=== PATIENT | male | born 1960 | race Caucasian/White ===

== ENCOUNTER 2019-09-15 17:45 | Emergency (ER) | payer OTHER, SELFPAY ==
--- NOTE | ~2019-09-15 | XR_ITS ---
EXAMINATION: XR skull <4V DATE: 09/15/2019 18:54 INDICATION: Right-sided head injury with swelling post fall 2 days prior TECHNIQUE: 5 views of the skull obtained. COMPARISON: None. FINDINGS: No fractures identified. Specifically the calvarium, mathew of the orbits and paranasal sinuses appea r intact. Mild rightward deviation of the nasal septum. Temporomandibular joints are normal alignment . No air-fluid levels appreciated within the paranasal sinuses or mastoid air cells. IMPRESSION: 1. Negative skull radiographs. Reviewed, dictated and finalized at location A. [employer]
--- NOTE | 2019-09-15 18:07 | ED.FALL ---
HPI - Fall General Chief Complaint: Fall Stated Complaint: Fall Time Seen by Provider: 09/15/19 18:20 Source: patient Mode of arrival: ambulatory Limitations: no limitations History of Present Illness HPI Narrative: Lc More is a 59 yo male with a PMH of liver cirrhosis, elevated BP to severity of liver disease (on transplant list), who fell yesterday leaving work. This occurred about 36 hours ago- but may not return to work until has been checked out and injury evaluated. Pt unsure what he hit, splipped on ice in work parking lot, maybe hit face on running boards of truck. Unsure if LOC. Patient has since that time had no nausea vomiting headache-right side of face is swollen .eye swollen shut last night ;but is open today Related Data Home Medications Medication Instructions Recorded Confirmed midodrine 09/15/19 rifaximin 09/15/19 Allergies Allergy/AdvReac Type Severity Reaction Status Date / Time No Known Allergies Allergy Verified 09/15/19 18:20 Review of Systems Review of Systems: Narrative: CONSTITUTIONAL: Denies fever, chills, sweats. EYES: Denies visual changes, redness, discharge. ENT: Denies rhinorrhea, congestion, sore throat, otalgia. CARDIOVASCULAR: Denies chest pain, palpitations, edema. RESPIRATORY: Denies dyspnea, wheezing, cough GASTROINTESTINAL: Denies abdominal pain, nausea, vomiting, diarrhea. GENITOURINARY: Denies dysuria, hematuria, abnormal discharge SKIN: Denies rash or itching. Right-sided facial abrasion-above eye, has black eye, right cheek and nose abrasion MUSCULOSKELETAL: Denies acute back pain, joint pain, or myalgia. NEUROLOGIC: Denies numbness, or focal weakness. PSYCHIATRIC: Denies anxiety or depression. PMFSH Social History Social History (Updated 09/15/19 @ 18:46 by Phoebe Del Real CNP) Smoking status: Former smoker Alcohol intake: former Gender identity (if verbalized by the patient): Male Comments At time of signature, I agree with nursing past medical, surgical, social and family history. There is no relevant family history pertinent to the presenting complaint. Exam Narrative: Exam Narrative: GENERAL: This is a well-nourished, well-developed patient, in no apparent distress. HEAD: normocephalic, EYES: PERRL. Sclera clear/white. Vision is grossly intact. Mild jaundice of eyes bilaterally EARS: External ears normal, auditory canals clear and without drainage, TMs normal without perforation. Hearing grossly intact. NOSE: External nose normal with no obvious nasal discharge, nares without redness, no rhinorrhea. THROAT: Mucous membranes moist, posterior pharynx clear. NECK: Neck supple, non-tender without lymphadenopathy, masses or thyromegaly. CARDIOVASCULAR: Regular rate and rhythm without murmurs, gallops, or rubs. RESPIRATORY: Clear to auscultation. Breath sounds equal bilaterally. No wheezes, rales, or rhonchi. GASTROINTESTINAL: Abdomen soft, non-tender, nondistended. Bowel sounds are active. No hepato-splenomegaly, or palpable masses. No guarding. SKIN: warm, intact with no suspicious lesions or rash, good texture and turgor. Abrasion above right eye across nose with swelling right cheek-ecchymosis of the eyelid NEURO: awake, alert, and oriented to person, place and time. There were no obvious focal neurologic abnormalities. Steady gait-grossly negative cranial nerves, equal hand supervisor dock bilaterally, ambulates without difficulty, denies visual disturbance EXTREMITIES: Normal range of motion. No edema. BACK: Nontender without deformity or crepitance. No flank tenderness. Course Course Emergency Course: X-ray of facial bones-orbits intact, TMJs intact, mild deviation of nose to right but no obvious fractures Vital Signs Vital signs: Vital Signs Temperature 99.6 F 09/15/19 18:11 Pulse Rate 102 H 09/15/19 18:11 Respiratory Rate 16 09/15/19 18:11 Blood Pressure 189/93 H 09/15/19 18:11 Pulse Oximetry 16 L 09/15/19 18:11 Temperature
[2019-09-15 18:11] VITALS: BP 189/93; PULSE 102; RESP 16; TEMP 37.6; O2SAT 16
== END 2019-09-15 19:25 | disposition home or self-care (01) ==
PROVIDERS: Emergency Provider Nurse Practitioner
DX: S00.81XA Abrasion of other part of head, initial encounter (principal); W00.0XXA Fall on same level due to ice and snow, initial encounter; Z87.891 Personal history of nicotine dependence; K74.60 Unspecified cirrhosis of liver
CPT/HCPCS: 70250; 99203; G0463